=== PATIENT | male | born 1995 | race Caucasian/White ===

== ENCOUNTER 2016-08-09 10:29 | Emergency (ER) | payer BC ==
--- NOTE | ~2016-08-09 | CR111 ---
[facility]. [facility] A Service of [facility] / [facility] RADIOLOGY TEXT RESULTS PATIENT: VENTURA LAMBERT LOCATION: SED : [birth year] UNIT #: [id number] AGE: [address]: KALA HDZ SEX: M ORDER DR: [id number] [place] [id number] E MR#: [id number] Acc #: [id number] NAME: VENTURA LAMBERT. : 1995 SEX: M STUDY DATE/TIME: 08/09/2016 12:09 UNIT: SED ROOM: STUDY DESCRIPTION: CR Finger 2 View 3rd Rt Attending Physician: Kala Hdz Aprn Ordering Physician: Kala Hdz Aprn Primary Care Physician: Gregor Faust M.D. MEDICAL IMAGING REPORT This report is preliminary unless electronic signature is present. EXAM Right third finger, 08/09/16, 1209 hours. CLINICAL HISTORY Cut third finger on hand saw today. Pain. COMPARISON None. FINDINGS AP, lateral and oblique views of the right hand are performed. These are not coned to the third finger. The overall bone density is normal. There is no dislocation or foreign body seen. On the lateral view only, there is a small soft tissue calcification seen along the dorsal aspect of the distal phalanx of the third finger at the level of the distal interphalangeal joint. This could represent a very small avulsion fracture not seen on the AP or oblique view. IMPRESSION There is a small soft tissue calcification or bone fragment seen at the dorsal aspect DIP joint of what I believe is the third finger on the lateral view. This is not apparent on the AP or oblique view. A very small avulsion fracture cannot be excluded. There is no foreign body. Dictated by... Angelic Mcneill M.D. THIS IS AN ELECTRONICALLY VERIFIED REPORT Angelic Mcneill M.D. at 08/10/2016 9:25 AM [place] [facility] A Service of [facility] / [facility] RADIOLOGY TEXT RESULTS PATIENT: VENTURA LAMBERT LOCATION: [facility] : [birth year] UNIT #: [id number] AGE: [address]: KALA HDZ SEX: M ORDER DR: TD: 08/09/2016 15:55 JOB #: [id number] MEDICAL IMAGING REPORT Page 1 of 1
[~2016-08-09 10:29] MED LIST: BACITRACIN30 GM TOP; KEFLEX500 MG PO; MOTRIN600 M1 PO; NO MEDICATIONS
== END 2016-08-09 12:50 | disposition home or self-care (01) ==
LOC: SED 10:29
DX: S61.212A Laceration without foreign body of right middle finger without damage to nail, initial encounter (principal); F17.210 Nicotine dependence, cigarettes, uncomplicated; W27.0XXA Contact with workbench tool, initial encounter; Y92.009 Unspecified place in unspecified non-institutional (private) residence as the place of occurrence of the external cause
CPT/HCPCS: 12002; 73140; 99283